=== PATIENT | female | born 1940 | race African-American/Black ===

== ENCOUNTER 2017-01-19 09:21 | Emergency (ER) | payer OTHER, MEDICAID ==
[~2017-01-19] VITALS: Ht 165.1 cm; Wt 60.0 kg
[~2017-01-19 09:21] MED LIST: ATEN1TAB47 PO; ESTR0.5T PO; FAMO40TA7 PO; HUMALOG INSULIN SUBCUT; LEVEMIR INSULIN SUBCUT; LEVEMIR SUBCUT; LOSA100T14 PO; ROSU20TA PO; SPIR50TA26 PO
[2017-01-19] MEDS ORDERED: LEVOFLOXACIN 750MG PREMIX 150 ML IV ONE (09:45)
[2017-01-19] MEDS ORDERED: SODIUM CHLORIDE 0.9% 1000ML BAG (SEPSIS BOLUS) IV ONE (09:45)
[2017-01-19] MEDS ORDERED: VANCOMYCIN 1 G PREMIX 200 ML IV ONE (09:45)
[2017-01-19 09:59] LABS: EOSINOPHILS % 2.4 % (0.0-5.0); HEMATOCRIT. 31.2 % (36.0-48.0); HEMOGLOBIN. 10.4 g/dL (12.0-16.0); LYMPHOCYTES % 34.1 % (20.0-50.0); MEAN CORPUSCULAR HEMOGLOBIN 30.6 pg (28.0-32.0); MEAN CORPUSCULAR HGB CONC 33.3 g/dL (31.0-37.0); MEAN CORPUSCULAR VOLUME 91.9 fL (81.0-99.0); MEAN PLATELET VOLUME 8.3 fl (7.4-10.4); MONOCYTES % 10.6 % (2.0-8.0); NEUTROPHILS % 51.9 % (40.0-76.0); PLATELET 165 x1000/uL (130-400); RED BLOOD CELL COUNT 3.39 mill/uL (4.2-5.4); RED CELL DISTRIBUTION WIDTH 14.4 % (11.6-14.6); WHITE BLOOD COUNT 3.5 x1000/uL (4.5-11.0)
[2017-01-19 10:05] LABS: CHLORIDE 104 mEq/L (98-107)
[2017-01-19 10:07] LABS: INDEX HEMOLYSI 1 (1-3); INDEX ICTERIC 1 (1-4); INDEX LIPEMIC 1 (1-3)
[2017-01-19 10:08] LABS: PARTIAL THROMBOPLASTIN TIME 27.1 sec (24.0-34.0); PROTHROMBIN TIME 10.7 sec
[2017-01-19 10:16] LABS: ALANINE AMINOTRANSFERASE 23 IU/L (13-61); ALBUMIN 3.6 g/dL (3.4-5.0); ANION GAP 10; CARBON DIOXIDE 32 mEq/L (21-32); NT PRO B-TYPE NATRIURETIC PEP 181 pg/mL (5-125); TROPONIN I < 0.02 ng/mL (0.00-0.04); UREA NITROGEN BLOOD 22 mg/dL (7-21); eGFR 53 mL/min (>60)
[2017-01-19 11:20] LABS: CLARITY URINE CLEAR (CLEAR); COLOR URINE YELLOW (YELLOW); GLUCOSE URINE TRACE (NEGATIVE); KETONES URINE NEGATIVE (NEGATIVE); LEUKOCYTE ESTERASE URINE NEGATIVE (NEGATIVE); NITRITE URINE NEGATIVE (NEGATIVE); OCCULT BLOOD URINE NEGATIVE (NEGATIVE); PROTEIN URINE NEGATIVE (NEGATIVE); SPECIFIC GRAVITY URINE 1.013 (1.005-1.030); UROBILINOGEN URINE 0.2 E.U./dL (0.2-1.0)
[2017-01-19 11:52] LABS: SQUAMOUS EPITHELIAL CELL URINE RARE /lpf (RARE/1+)
[2017-01-19 11:54] LABS: BACTERIA URINE NONE SEEN; RBC URINE NONE SEEN /hpf (0-2); WBC URINE NONE SEEN /hpf (0-2)
[2017-01-19 14:13] VITALS: BP 152/76
== END 2017-01-19 14:50 | disposition short-term general hospital (02) ==
LOC: ER 09:22
DX: R41.82 Altered mental status, unspecified (principal); Z88.0 Allergy status to penicillin; Z88.6 Allergy status to analgesic agent; Z79.899 Other long term (current) drug therapy; Z88.8 Allergy status to other drugs, medicaments and biological substances; I10 Essential (primary) hypertension; E78.00 Pure hypercholesterolemia, unspecified; E11.649 Type 2 diabetes mellitus with hypoglycemia without coma
CPT/HCPCS: 36415; 51702; 70450; 71010; 80053; 81001; 82962; 83605; 83880; 84484; 85025; 85610; 85730; 86850; 86900; 86901; 87040; 87086; 93005; 96365; 96366; 96367; 99285; J1956; J3370; J7030

== ENCOUNTER 2017-07-12 18:02 | Emergency (ER) | payer OTHER, MEDICAID ==
[~2017-07-12] VITALS: Ht 172.7 cm; Wt 59.0 kg
[2017-07-12] MEDS ORDERED: SODIUM CHLORIDE 0.9% 500 ML IV ONE ×2 (19:39→22:30)
[2017-07-12 20:18] LABS: INR 1.1
[2017-07-12 20:19] LABS: CHLORIDE 103 mEq/L (98-107)
[2017-07-12 20:22] LABS: BASOPHILS % 0.7 % (0.0-2.0); EOSINOPHILS % 6.1 % (0.0-5.0); HEMATOCRIT. 31.7 % (36.0-48.0); HEMOGLOBIN. 10.7 g/dL (12.0-16.0); LYMPHOCYTES % 29.9 % (20.0-50.0); MEAN CORPUSCULAR HEMOGLOBIN 30.4 pg (28.0-32.0); MEAN CORPUSCULAR VOLUME 90.4 fL (81.0-99.0); MEAN PLATELET VOLUME 9.1 fl (7.4-10.4); MONOCYTES % 8.7 % (2.0-8.0); NEUTROPHILS % 54.6 % (40.0-76.0); PLATELET 175 x1000/uL (130-400); RED BLOOD CELL COUNT 3.51 mill/uL (4.2-5.4); RED CELL DISTRIBUTION WIDTH 13.3 % (11.6-14.6)
[2017-07-12 20:31] LABS: CARBON DIOXIDE 29 mEq/L (21-32); TROPONIN I < 0.02 ng/mL (0.00-0.04)
[2017-07-12 22:51] LABS: CLARITY URINE CLEAR (CLEAR); COLOR URINE YELLOW (YELLOW); GLUCOSE URINE 3+ (NEGATIVE); KETONES URINE NEGATIVE (NEGATIVE); LEUKOCYTE ESTERASE URINE NEGATIVE (NEGATIVE); NITRITE URINE NEGATIVE (NEGATIVE); OCCULT BLOOD URINE NEGATIVE (NEGATIVE); PH URINE 7.5 (4.5-8.0); PROTEIN URINE NEGATIVE (NEGATIVE); SPECIFIC GRAVITY URINE 1.019 (1.005-1.030)
[2017-07-13 00:37] VITALS: BP 155/71
== END 2017-07-13 01:01 | disposition home or self-care (01) ==
LOC: ER 18:36
DX: E11.65 Type 2 diabetes mellitus with hyperglycemia (principal); E78.5 Hyperlipidemia, unspecified; I10 Essential (primary) hypertension; F03.90 Unspecified dementia, unspecified severity, without behavioral disturbance, psychotic disturbance, mood disturbance, and anxiety; Z88.0 Allergy status to penicillin; Z79.4 Long term (current) use of insulin; Z88.8 Allergy status to other drugs, medicaments and biological substances
CPT/HCPCS: 36415; 71010; 80053; 81001; 82962; 84484; 85025; 85610; 93005; 96360; 96361; 99285; J7040; J7030

== ENCOUNTER 2018-06-19 07:12 | Inpatient (IN) | payer OTHER, MEDICAID ==
[~2018-06-19] VITALS: Ht 162.6 cm; Wt 51.7 kg
[2018-06-19] VITALS (13 sets, daily range): BP systolic 104–136; BP diastolic 40–71
[~2018-06-19 07:12] MED LIST changes: -SPIR50TA26 PO; +SPIR50TA5 PO
[2018-06-19] MEDS ORDERED: SODIUM CHLORIDE 0.9% 1000ML BAG (SEPSIS BOLUS) IV ONE (07:30)
[2018-06-19 08:16] LABS: BASOPHILS % 0.4 % (0.0-2.0); HEMATOCRIT. 39.4 % (36.0-48.0); HEMOGLOBIN. 12.1 g/dL (12.0-16.0); LYMPHOCYTES % 7.1 % (20.0-50.0); MEAN CORPUSCULAR HEMOGLOBIN 30.7 pg (28.0-32.0); MEAN CORPUSCULAR VOLUME 99.9 fL (81.0-99.0); MEAN PLATELET VOLUME 9.7 fl (7.4-10.4); MONOCYTES % 5.9 % (2.0-8.0); NEUTROPHILS % 86.6 % (40.0-76.0); PLATELET 276 x1000/uL (130-400); RED BLOOD CELL COUNT 3.95 mill/uL (4.2-5.4); RED CELL DISTRIBUTION WIDTH 14.5 % (11.6-14.6)
[2018-06-19 08:17] LABS: CHLORIDE 92 mEq/L (98-107)
[2018-06-19] MEDS ORDERED: SODIUM CHLORIDE 0.9% 1,000 ML IV ONE (08:37)
[2018-06-19] MEDS ORDERED: FUROSEMIDE 100MG/10ML VIAL IV STA (08:37)
[2018-06-19] MEDS ORDERED: INSULIN REGULAR (HUMULIN R) 300UNITS/3ML IV ONE (08:45)
[2018-06-19] MEDS ORDERED: INSULIN REGULAR (DRIP) 100 UNITS in SODIUM CHLORIDE 0.9% 99 ML IV SCH (08:45)
[2018-06-19] MEDS ORDERED: ALBUTEROL (0.083%) 2.5MG/3ML NEB HHN ONE (08:45)
[2018-06-19] MEDS ORDERED: SODIUM BICARBONATE 8.4% 1 MEQ/ML 50ML SYR IV ONE (08:45)
[2018-06-19 08:55] LABS: BETA HYDROXYBUTYRATE 10.8 mMol/L (0.0-0.3)
[2018-06-19 09:00] LABS: BG BASE EXCESS -19.7 mmol/L (-2.0-2.0); BG CARBOXYHEMOGLOBIN 0.4 % (0.5-1.5); BG DEOXYHEMOGLOBIN 3.1 % (0.0-5.0); BG FRACTION INSPIRED OXYGEN 21; BG HCO3 ACT 7.1 mmol/L (22.0-26.0); BG METHEMOGLOBIN 0.3 % (0.0-1.5); BG OXYGEN SATURATION 96.9 % (92.0-98.5); BG OXYHEMOGLOBIN 96.2 % (94.0-97.0); BG PCO2 20.1 mmHg (35.0-45.0); BG PH 7.164 (7.350-7.450); BG PO2 104.4 mmHg (75.0-100.0); BG SAMPLE SITE RIGHT RADIAL; BG TOTAL HEMOGLOBIN 11.3 g/dL (12.0-18.0); BG VENT MODE ROOM AIR
[2018-06-19] MEDS ORDERED: ONDANSETRON HCL 4MG/2ML VIAL IV PRN (09:30)
[2018-06-19] MEDS ORDERED: IPRATROPIUM/ALBUTEROL 0.5-3(2.5)MG/3ML NEB HHN PRN (09:30)
[2018-06-19 10:08] LABS: PHOSPHORUS 7.9 mg/dL (2.5-4.9)
[2018-06-19] MEDS ORDERED: LEVOFLOXACIN 500MG PREMIX 100 ML IV SCH (11:30)
[2018-06-19 12:15] LABS: CLARITY URINE CLEAR (CLEAR); COLOR URINE YELLOW (YELLOW); KETONES URINE 1+ (NEGATIVE); LEUKOCYTE ESTERASE URINE NEGATIVE (NEGATIVE); NITRITE URINE NEGATIVE (NEGATIVE); OCCULT BLOOD URINE NEGATIVE (NEGATIVE); PROTEIN URINE NEGATIVE (NEGATIVE); SPECIFIC GRAVITY URINE 1.017 (1.005-1.030); UROBILINOGEN URINE 0.2 E.U./dL (0.2-1.0)
[2018-06-19] MEDS ORDERED: VANCOMYCIN 1250MG in DEXTROSE 5% WATER 250ML IV SCH (12:30)
[2018-06-19 12:36] LABS: *AMPHETAMINES SCREEN URINE NEGATIVE (NEGATIVE); *BENZODIAZEPINES SCREEN URINE NEGATIVE (NEGATIVE); *COCAINE SCREEN URINE NEGATIVE (NEGATIVE); METHADONE URINE SCREEN NEGATIVE (NEGATIVE)
[2018-06-19 12:37] LABS: CANNABINOID URINE SCREEN NEGATIVE (NEGATIVE); OPIATES URINE SCREEN NEGATIVE (NEGATIVE); PHENCYCLIDINE URINE SCREEN NEGATIVE (NEGATIVE)
[2018-06-19 12:39] LABS: *BARBITURATES SCREEN URINE NEGATIVE (NEGATIVE)
[2018-06-19] MEDS ORDERED: DEXTROSE 50% WATER 50ML SYRINGE IV PRN ×2 (13:00)
[2018-06-19] MEDS: SODIUM CHLORIDE 0.45% 1,000 ML IV SCH ×3 (13:08→20:28)
[2018-06-19] MEDS: INSULIN REGULAR (DRIP) 100 UNITS in SODIUM CHLORIDE 0.9% 99 ML IV PRN ×2 (13:36→20:55)
[2018-06-19] MEDS: BLOOD SUGAR DIAGNOSTIC STRIP TEST SCH ×11 (13:37→23:07)
[2018-06-19] MEDS ORDERED: ASPI-1159 MT (20:50)
[2018-06-19] MEDS ORDERED: FOLI0.8T27 PO (20:50)
[2018-06-19] MEDS ORDERED: DONE10TA43 MT (20:50)
[2018-06-19] MEDS ORDERED: [UNRECOGNIZED DRUG - CODE] PO (20:50)
[2018-06-19] MEDS ORDERED: FAMO40TA7 MT (20:50)
[2018-06-19] MEDS ORDERED: KCL 20MEQ/100ML PREMIX 100 ML IV NR (22:30)
[2018-06-19] MEDS: SODIUM CHL 0.45% + KCL 20MEQ/L 1,000 ML IV SCH (23:28)
[2018-06-20] VITALS (22 sets, daily range): BP systolic 118–163; BP diastolic 50–90
[2018-06-20] MEDS: BLOOD SUGAR DIAGNOSTIC STRIP TEST SCH ×23 (00:56→20:00)
[2018-06-20] MEDS: SODIUM CHL 0.45% + KCL 20MEQ/L 1,000 ML IV SCH ×4 (04:24→19:30)
[2018-06-20 05:37] LABS: HEMATOCRIT. 30.7 % (36.0-48.0); HEMOGLOBIN. 10.6 g/dL (12.0-16.0); MEAN CORPUSCULAR VOLUME 89.5 fL (81.0-99.0); MEAN PLATELET VOLUME 8.6 fl (7.4-10.4); PLATELET 195 x1000/uL (130-400); RED BLOOD CELL COUNT 3.43 mill/uL (4.2-5.4); RED CELL DISTRIBUTION WIDTH 13.7 % (11.6-14.6)
[2018-06-20] MEDS ORDERED: DEXTROSE 50% WATER 50ML SYRINGE IV PRN (10:30)
[2018-06-20] MEDS ORDERED: INSULIN GLARGINE UD 100 UNITS/ML SYR SUBCUT SCH (10:30)
[2018-06-20 10:37] LABS: PLATELET ESTIMATE NORMAL
[2018-06-20] MEDS ORDERED: LEVOFLOXACIN 250MG PREMIX 50 ML IV SCH (11:00)
[2018-06-20] MEDS: INSULIN LISPRO 100 UNITS/ML SUBCUT SCH ×3 (12:00→21:00)
[2018-06-20] MEDS ORDERED: VANCOMYCIN 500 MG PREMIX 100 ML IV SCH (13:00)
[2018-06-20 13:17] LABS: PHOSPHORUS 1.8 mg/dL (2.5-4.9)
== END 2018-06-20 22:00 | disposition short-term general hospital (02) | DRG 871 ==
LOC: ER 07:22 → EDBEDREQTM 08:45 → EDBEDREQSVC 08:45 → EDBEDREQ 08:49 → EDBEDREQTM 08:49 → ENRESERV 09:15 → MICUNO 10:23
PROVIDERS: ADMIT Internal Medicine; ATTEND Internal Medicine
DX: A41.9 Sepsis, unspecified organism (principal); E11.10 Type 2 diabetes mellitus with ketoacidosis without coma; G93.41 Metabolic encephalopathy; E87.1 Hypo-osmolality and hyponatremia; N17.9 Acute kidney failure, unspecified; E11.22 Type 2 diabetes mellitus with diabetic chronic kidney disease; E87.5 Hyperkalemia; E87.8 Other disorders of electrolyte and fluid balance, not elsewhere classified; F03.90 Unspecified dementia, unspecified severity, without behavioral disturbance, psychotic disturbance, mood disturbance, and anxiety; N18.9 Chronic kidney disease, unspecified; Z88.0 Allergy status to penicillin; Z88.8 Allergy status to other drugs, medicaments and biological substances; Z88.6 Allergy status to analgesic agent; Z79.899 Other long term (current) drug therapy
CPT/HCPCS: 36415; 36600; 70450; 71045; 80048; 80053; 80305; 81003; 82010; 82375; 82805; 82962; 83605; 83735; 84100; 84484; 85025; 85610; 87040; 87086; 93005; 96361; 96365; 96366; 96375; 97162; 99291; J1815; J1940; J1956; J3370; J3480; J3490; J7030; J7050; J7060; J7611

== ENCOUNTER 2018-08-09 17:04 | Inpatient (IN) | payer MEDICARE, MEDICAID ==
[~2018-08-09] VITALS: Ht 160 cm; Wt 62.6 kg
[~2018-08-09 17:04] MED LIST changes: +ASPI-1159 MT; +DONE10TA43 MT; +FAMO40TA7 MT; +FOLI0.8T27 PO; +[UNRECOGNIZED DRUG - CODE] PO
[2018-08-09 18:54] LABS: EOSINOPHILS % 4.4 % (0.0-5.0); HEMOGLOBIN. 10.8 g/dL (12.0-16.0); LYMPHOCYTES % 31.9 % (20.0-50.0); MEAN CORPUSCULAR HEMOGLOBIN 30.6 pg (28.0-32.0); MEAN CORPUSCULAR VOLUME 90.5 fL (81.0-99.0); MONOCYTES % 11.4 % (2.0-8.0); NEUTROPHILS % 51.3 % (40.0-76.0); PLATELET 199 x1000/uL (130-400); RED BLOOD CELL COUNT 3.53 mill/uL (4.2-5.4); RED CELL DISTRIBUTION WIDTH 13.6 % (11.6-14.6)
[2018-08-09 19:04] LABS: PROTHROMBIN TIME 9.9 sec (9.1-11.1)
[2018-08-09 19:05] LABS: CHLORIDE 101 mEq/L (98-107)
[2018-08-09] MEDS ORDERED: VANCOMYCIN 1 G PREMIX 200 ML IV SCH (20:15)
[2018-08-09] MEDS ORDERED: ONDANSETRON HCL 4MG/2ML INJ IV PRN (22:30)
[2018-08-09] MEDS ORDERED: CLONIDINE 0.1MG TABLET PO PRN (22:30)
[2018-08-09] MEDS ORDERED: IPRATROPIUM/ALBUTEROL 0.5-3(2.5)MG/3ML NEB INH PRN (22:30)
[2018-08-09] MEDS ORDERED: ACETAMINOPHEN 325MG TABLET PO PRN (22:30)
[2018-08-09 23:30] VITALS: BP 164/81
[2018-08-10] MEDS ORDERED: DEXTROSE 50% WATER 50ML SYRINGE IV PRN
[2018-08-10] MEDS: CLINDAMYCIN 300 MG in DEXTROSE 5% WATER 50 ML IV SCH ×4 (03:48→23:34)
[2018-08-10 04:00] VITALS: BP 123/63
[2018-08-10] MEDS: BLOOD SUGAR DIAGNOSTIC STRIP TEST SCH ×4 (06:22→20:46)
[2018-08-10 07:07] LABS: BASOPHILS % 0.9 % (0.0-2.0); EOSINOPHILS % 5.5 % (0.0-5.0); HEMATOCRIT. 30.1 % (36.0-48.0); HEMOGLOBIN. 10.2 g/dL (12.0-16.0); LYMPHOCYTES % 31.6 % (20.0-50.0); MEAN CORPUSCULAR HEMOGLOBIN 30.5 pg (28.0-32.0); MEAN CORPUSCULAR VOLUME 90.4 fL (81.0-99.0); MEAN PLATELET VOLUME 8.8 fl (7.4-10.4); MONOCYTES % 14.2 % (2.0-8.0); NEUTROPHILS % 47.8 % (40.0-76.0); PLATELET 187 x1000/uL (130-400); RED BLOOD CELL COUNT 3.33 mill/uL (4.2-5.4); RED CELL DISTRIBUTION WIDTH 13.5 % (11.6-14.6)
[2018-08-10 07:19] LABS: CHLORIDE 104 mEq/L (98-107)
[2018-08-10 07:37] LABS: HDL CHOLESTEROL 76 mg/dL (40-59); LDL CHOLESTEROL 70 mg/dL (5-100)
[2018-08-10] MEDS: INSULIN LISPRO 100 UNITS/ML SUBCUT SCH ×4 (08:16→21:30)
[2018-08-10 09:28] LABS: TOTAL IRON BINDING CAPACITY 292 ug/dL (250-450)
[2018-08-10] MEDS: SPIRONOLACTONE 25MG TABLET PO SCH (09:56)
[2018-08-10] MEDS: ATENOLOL 50 MG TABLET PO SCH (09:56)
[2018-08-10] MEDS: MEMANTINE HCL 5MG TABLET PO SCH (09:56)
[2018-08-10] MEDS: DONEPEZIL HCL 10MG TABLET PO SCH (09:56)
[2018-08-10] MEDS: DOCUSATE SODIUM 250MG CAPSULE PO SCH (09:56)
[2018-08-10] MEDS: LOSARTAN POTASSIUM 100 MG TABLET PO SCH (09:56)
[2018-08-10] MEDS: FOLIC ACID/VITAMIN B COMP W-C TABLET PO SCH (09:56)
[2018-08-10] MEDS: ENOXAPARIN 40MG/0.4ML SYR SUBCUT SCH (10:00)
[2018-08-10] MEDS: FUROSEMIDE 20MG/2ML VIAL IVP SCH (10:00)
[2018-08-10] MEDS: INSULIN GLARGINE UD 100 UNITS/ML SYR SUBCUT SCH (12:15)
[2018-08-10 12:59] LABS: VITAMIN B12 SERUM 459 pg/mL (211-911)
[2018-08-10 20:00] VITALS: BP 150/57
[2018-08-11] VITALS (7 sets, daily range): BP systolic 110–163; BP diastolic 52–77
[2018-08-11] MEDS: CLINDAMYCIN 300 MG in DEXTROSE 5% WATER 50 ML IV SCH ×3 (05:41→18:37)
[2018-08-11] MEDS: BLOOD SUGAR DIAGNOSTIC STRIP TEST SCH ×4 (06:22→20:28)
[2018-08-11] MEDS: FOLIC ACID/VITAMIN B COMP W-C TABLET PO SCH (08:09)
[2018-08-11] MEDS: ATENOLOL 50 MG TABLET PO SCH (08:09)
[2018-08-11] MEDS: DOCUSATE SODIUM 250MG CAPSULE PO SCH (08:09)
[2018-08-11] MEDS: LOSARTAN POTASSIUM 100 MG TABLET PO SCH (08:09)
[2018-08-11] MEDS: MEMANTINE HCL 5MG TABLET PO SCH (08:09)
[2018-08-11] MEDS: SPIRONOLACTONE 25MG TABLET PO SCH (08:10)
[2018-08-11] MEDS: DONEPEZIL HCL 10MG TABLET PO SCH (08:10)
[2018-08-11] MEDS: ENOXAPARIN 40MG/0.4ML SYR SUBCUT SCH (08:12)
[2018-08-11] MEDS: INSULIN LISPRO 100 UNITS/ML SUBCUT SCH ×4 (08:15→21:00)
[2018-08-11] MEDS: FUROSEMIDE 20MG/2ML VIAL IVP SCH (08:16)
[2018-08-11 10:50] LABS: BASOPHILS % 0.8 % (0.0-2.0); EOSINOPHILS % 3.2 % (0.0-5.0); HEMATOCRIT. 34.2 % (36.0-48.0); HEMOGLOBIN. 11.6 g/dL (12.0-16.0); LYMPHOCYTES % 27.4 % (20.0-50.0); MEAN CORPUSCULAR VOLUME 91.1 fL (81.0-99.0); MEAN PLATELET VOLUME 8.7 fl (7.4-10.4); MONOCYTES % 8.1 % (2.0-8.0); NEUTROPHILS % 60.5 % (40.0-76.0); PLATELET 207 x1000/uL (130-400); RED BLOOD CELL COUNT 3.75 mill/uL (4.2-5.4); RED CELL DISTRIBUTION WIDTH 13.8 % (11.6-14.6)
[2018-08-11] MEDS: INSULIN GLARGINE UD 100 UNITS/ML SYR SUBCUT SCH (13:17)
[2018-08-11] MEDS ORDERED: INSULIN LISPRO 100 UNITS/ML SUBCUT NR (15:50)
[2018-08-11] MEDS ORDERED: INSULIN GLARGINE UD 100 UNITS/ML SYR SUBCUT NR (17:00)
[2018-08-12] VITALS: BP 139/53
[2018-08-12] MEDS: CLINDAMYCIN 300 MG in DEXTROSE 5% WATER 50 ML IV SCH ×3 (00:12→11:26)
[2018-08-12 04:00] VITALS: BP 136/55
[2018-08-12] MEDS: BLOOD SUGAR DIAGNOSTIC STRIP TEST SCH ×2 (06:37→12:01)
[2018-08-12] MEDS: INSULIN LISPRO 100 UNITS/ML SUBCUT SCH ×2 (07:01→13:57)
[2018-08-12 08:00] VITALS: BP 176/81
[2018-08-12] MEDS: FUROSEMIDE 20MG/2ML VIAL IVP SCH (08:37)
[2018-08-12] MEDS: LOSARTAN POTASSIUM 100 MG TABLET PO SCH (08:37)
[2018-08-12] MEDS: SPIRONOLACTONE 25MG TABLET PO SCH (08:37)
[2018-08-12] MEDS: DONEPEZIL HCL 10MG TABLET PO SCH (08:38)
[2018-08-12] MEDS: MEMANTINE HCL 5MG TABLET PO SCH (08:38)
[2018-08-12] MEDS: FOLIC ACID/VITAMIN B COMP W-C TABLET PO SCH (08:38)
[2018-08-12] MEDS: ATENOLOL 50 MG TABLET PO SCH (08:38)
[2018-08-12] MEDS: DOCUSATE SODIUM 250MG CAPSULE PO SCH (08:38)
[2018-08-12] MEDS: ENOXAPARIN 40MG/0.4ML SYR SUBCUT SCH (08:39)
[2018-08-12] MEDS: INSULIN GLARGINE UD 100 UNITS/ML SYR SUBCUT SCH (10:00)
[2018-08-12 12:00] VITALS: BP 164/68
[2018-08-12 16:00] VITALS: BP 168/77
[2018-08-12 16:04] VITALS: BP 164/68
== END 2018-08-12 16:54 | DRG 602 ==
LOC: ER 17:55 → 6EST 20:27 → ENRESERV 22:19
PROVIDERS: ADMIT Internal Medicine Geriatric Medicine; ATTEND Internal Medicine Geriatric Medicine
DX: L03.116 Cellulitis of left lower limb (principal); E11.10 Type 2 diabetes mellitus with ketoacidosis without coma; F02.81 Dementia in other diseases classified elsewhere, unspecified severity, with behavioral disturbance; I13.10 Hypertensive heart and chronic kidney disease without heart failure, with stage 1 through stage 4 chronic kidney disease, or unspecified chronic kidney disease; G30.9 Alzheimer's disease, unspecified; R07.89 Other chest pain; I87.2 Venous insufficiency (chronic) (peripheral); D63.8 Anemia in other chronic diseases classified elsewhere; E11.65 Type 2 diabetes mellitus with hyperglycemia; M15.9 Polyosteoarthritis, unspecified; N18.9 Chronic kidney disease, unspecified; E11.22 Type 2 diabetes mellitus with diabetic chronic kidney disease; E87.70 Fluid overload, unspecified; Z79.82 Long term (current) use of aspirin; Z90.710 Acquired absence of both cervix and uterus; Z88.8 Allergy status to other drugs, medicaments and biological substances; Z88.0 Allergy status to penicillin
CPT/HCPCS: 36415; 71045; 80048; 80061; 82607; 82962; 83036; 83540; 83550; 83880; 84443; 84484; 86592; 93005; 93306; 93970; 96365; 97116; 97162; 97530; 99285; J1650; J1815; J1940; J3370; J3490; J7040; J7050; J7060

== ENCOUNTER 2018-11-28 18:30 | Inpatient (IN) | payer MEDICARE, MEDICAID ==
[~2018-11-28] VITALS: Ht 162.6 cm; Wt 71.3 kg
[2018-11-28] MEDS ORDERED: SODIUM CHLORIDE 0.9% 1000ML BAG (SEPSIS BOLUS) IV ONE ×2 (18:45→20:00)
[2018-11-28 19:31] LABS: BASOPHILS % 0.4 % (0.0-2.0); HEMATOCRIT. 36.2 % (36.0-48.0); HEMOGLOBIN. 11.8 g/dL (12.0-16.0); MEAN CORPUSCULAR VOLUME 91.8 fL (81.0-99.0); MEAN PLATELET VOLUME 8.2 fl (7.4-10.4); MONOCYTES % 9.1 % (2.0-8.0); NEUTROPHILS % 79.5 % (40.0-76.0); PLATELET 294 x1000/uL (130-400); RED BLOOD CELL COUNT 3.94 mill/uL (4.2-5.4); RED CELL DISTRIBUTION WIDTH 14.4 % (11.6-14.6)
[2018-11-28 19:38] LABS: CHLORIDE 96 mEq/L (98-107)
[2018-11-28] MEDS ORDERED: MEROPENEM 1,000 MG in SODIUM CHLORIDE 0.9% 100 ML IV ONE (20:00)
[2018-11-28] MEDS ORDERED: VANCOMYCIN 1 G PREMIX 200 ML IV ONE (20:00)
[2018-11-28] MEDS ORDERED: INSULIN REGULAR (DRIP) 100 UNITS in SODIUM CHLORIDE 0.9% 99 ML IV SCH ×2 (20:30→20:45)
[2018-11-28 20:54] LABS: CLARITY URINE CLOUDY (CLEAR); COLOR URINE YELLOW (YELLOW); KETONES URINE TRACE (NEGATIVE); LEUKOCYTE ESTERASE URINE NEGATIVE (NEGATIVE); NITRITE URINE NEGATIVE (NEGATIVE); OCCULT BLOOD URINE NEGATIVE (NEGATIVE); PROTEIN URINE TRACE (NEGATIVE); SPECIFIC GRAVITY URINE 1.015 (1.005-1.030); UROBILINOGEN URINE 0.2 E.U./dL (0.2-1.0)
[2018-11-28] MEDS ORDERED: ONDANSETRON HCL 4MG/2ML INJ IV PRN (21:45)
[2018-11-28] MEDS ORDERED: ACETAMINOPHEN 650MG SUPP PR PRN (21:45)
[2018-11-28] MEDS ORDERED: DIPHENHYDRAMINE 50MG/ML VIAL IV PRN (21:45)
[2018-11-28] MEDS ORDERED: SODIUM CHLORIDE 0.9% 1,000 ML IV SCH (22:15)
[2018-11-28 22:28] LABS: BG BASE EXCESS -3.9 mmol/L (-2.0-2.0); BG CARBOXYHEMOGLOBIN 0.4 % (0.5-1.5); BG FRACTION INSPIRED OXYGEN 21; BG HCO3 ACT 19.9 mmol/L (22.0-26.0); BG METHEMOGLOBIN 0.1 % (0.0-1.5); BG OXYHEMOGLOBIN 96.5 % (94.0-97.0); BG PCO2 32.2 mmHg (35.0-45.0); BG PH 7.409 (7.350-7.450); BG PO2 90.1 mmHg (75.0-100.0); BG SAMPLE SITE LEFT RADIAL; BG TOTAL HEMOGLOBIN 11.8 g/dL (12.0-18.0); BG VENT MODE ROOM AIR
[2018-11-29] VITALS (11 sets, daily range): BP systolic 118–154; BP diastolic 62–81
[2018-11-29] MEDS: DEXT 5%/0.45% NACL 1000ML 1,000 ML IV SCH (02:45)
[2018-11-29 03:32] LABS: PHOSPHORUS 3.4 mg/dL (2.5-4.9)
[2018-11-29 05:53] LABS: BASOPHILS % 0.8 % (0.0-2.0); HEMATOCRIT. 34.3 % (36.0-48.0); HEMOGLOBIN. 11.5 g/dL (12.0-16.0); LYMPHOCYTES % 9.5 % (20.0-50.0); MEAN CORPUSCULAR HEMOGLOBIN 30.4 pg (28.0-32.0); MEAN CORPUSCULAR VOLUME 90.7 fL (81.0-99.0); MEAN PLATELET VOLUME 8.4 fl (7.4-10.4); MONOCYTES % 5.6 % (2.0-8.0); NEUTROPHILS % 84.1 % (40.0-76.0); PLATELET 270 x1000/uL (130-400); RED BLOOD CELL COUNT 3.78 mill/uL (4.2-5.4); RED CELL DISTRIBUTION WIDTH 14.1 % (11.6-14.6)
[2018-11-29] MEDS ORDERED: SODIUM BICARBONATE 8.4% 1 MEQ/ML 50ML SYR IV NR (06:00)
[2018-11-29 06:10] LABS: PHOSPHORUS 3.8 mg/dL (2.5-4.9)
[2018-11-29] MEDS ORDERED: ONDANSETRON HCL 4MG/2ML INJ IV PRN (11:45)
[2018-11-29] MEDS ORDERED: INSULIN GLARGINE UD 100 UNITS/ML SYR SUBCUT ONE (12:00)
[2018-11-29] MEDS ORDERED: INSULIN REGULAR (DRIP) 100 UNITS in SODIUM CHLORIDE 0.9% 99 ML IV SCH (14:00)
[2018-11-29] MEDS ORDERED: INSULIN REGULAR (DRIP) 100 UNITS in SODIUM CHLORIDE 0.9% 99 ML IV PRN (14:00)
[2018-11-29] MEDS: ENOXAPARIN 30MG/0.3ML SYR SUBCUT SCH (20:00)
[2018-11-29] MEDS: BLOOD SUGAR DIAGNOSTIC STRIP TEST SCH ×3 (22:00→23:45)
[2018-11-29] MEDS: DEXTROSE 50% WATER 50ML SYRINGE IV PRN (22:09)
[2018-11-29] MEDS: INSULIN REGULAR (DRIP) 100 UNITS in SODIUM CHLORIDE 0.9% 99 ML IV SCH (22:49)
[2018-11-30] VITALS (36 sets, daily range): BP systolic 67–185; BP diastolic 27–140
[2018-11-30] MEDS: BLOOD SUGAR DIAGNOSTIC STRIP TEST SCH ×14 (00:45→21:37)
[2018-11-30] MEDS: SODIUM CHLORIDE 0.45% 1,000 ML IV SCH ×2 (00:55→02:41)
[2018-11-30] MEDS: DEXTROSE 50% WATER 50ML SYRINGE IV PRN (01:05)
[2018-11-30] MEDS: INSULIN REGULAR (DRIP) 100 UNITS in SODIUM CHLORIDE 0.9% 99 ML IV SCH (04:41)
[2018-11-30 05:16] LABS: HEMATOCRIT. 33.3 % (36.0-48.0); HEMOGLOBIN. 11.1 g/dL (12.0-16.0); MEAN CORPUSCULAR HEMOGLOBIN 30.2 pg (28.0-32.0); MEAN CORPUSCULAR VOLUME 90.4 fL (81.0-99.0); MEAN PLATELET VOLUME 8.5 fl (7.4-10.4); PLATELET 263 x1000/uL (130-400); RED BLOOD CELL COUNT 3.69 mill/uL (4.2-5.4); RED CELL DISTRIBUTION WIDTH 14.7 % (11.6-14.6)
[2018-11-30 07:18] LABS: PLATELET ESTIMATE NORMAL
[2018-11-30] MEDS: DEXT 5%/0.45% NACL 1000ML 1,000 ML IV SCH (07:45)
[2018-11-30] MEDS: PANTOPRAZOLE SODIUM 40 MG/VIAL IV SCH (07:45)
[2018-11-30] MEDS ORDERED: MEMA5TAB15 MT (09:23)
[2018-11-30] MEDS ORDERED: FURO20TA4 MT (09:23)
[2018-11-30] MEDS ORDERED: DOCU250C69 MT (09:23)
[2018-11-30] MEDS ORDERED: AMA2 MT (09:23)
[2018-11-30] MEDS ORDERED: ATEN50TA MT (09:23)
[2018-11-30] MEDS ORDERED: INSULIN GLARGINE UD 100 UNITS/ML SYR SUBCUT SCH ×2 (10:00→22:00)
[2018-11-30] MEDS ORDERED: DEXTROSE 50% WATER 50ML SYRINGE IV PRN (11:30)
[2018-11-30] MEDS: LOSARTAN POTASSIUM 25 MG TABLET PO SCH ×2 (11:43→20:33)
[2018-11-30] MEDS: ATENOLOL 50 MG TABLET PO SCH (11:43)
[2018-11-30] MEDS ORDERED: INSULIN LISPRO 100 UNITS/ML SUBCUT SCH ×4 (13:20→18:20)
[2018-11-30] MEDS: ENALAPRIL 1.25MG/ML VIAL 1ML IV PRN (14:36)
[2018-11-30] MEDS: MINOXIDIL 2.5MG TABLET PO SCH (16:41)
[2018-11-30] MEDS ORDERED: NICARDIPINE 50 MG in SODIUM CHLORIDE 0.9% 230 ML IV PRN (18:30)
[2018-11-30] MEDS: INSULIN LISPRO 100 UNITS/ML SUBCUT SCH ×2 (18:48→21:42)
[2018-11-30] MEDS: LEVOFLOXACIN 250MG PREMIX 50 ML IV SCH (20:33)
[2018-11-30] MEDS: ENOXAPARIN 30MG/0.3ML SYR SUBCUT SCH (20:33)
[2018-12-01] VITALS (44 sets, daily range): BP systolic 89–160; BP diastolic 32–96
[2018-12-01 06:15] LABS: BASOPHILS % 0.3 % (0.0-2.0); EOSINOPHILS % 0.7 % (0.0-5.0); HEMATOCRIT. 34.8 % (36.0-48.0); HEMOGLOBIN. 11.6 g/dL (12.0-16.0); LYMPHOCYTES % 19.3 % (20.0-50.0); MEAN CORPUSCULAR HEMOGLOBIN 30.4 pg (28.0-32.0); MEAN CORPUSCULAR VOLUME 91.2 fL (81.0-99.0); NEUTROPHILS % 71.7 % (40.0-76.0); PLATELET 248 x1000/uL (130-400); RED BLOOD CELL COUNT 3.81 mill/uL (4.2-5.4); RED CELL DISTRIBUTION WIDTH 14.7 % (11.6-14.6)
[2018-12-01] MEDS: INSULIN LISPRO 100 UNITS/ML SUBCUT SCH ×8 (07:50→21:02)
[2018-12-01] MEDS ORDERED: INSULIN LISPRO 100 UNITS/ML SUBCUT SCH (07:50)
[2018-12-01] MEDS: BLOOD SUGAR DIAGNOSTIC STRIP TEST SCH ×4 (08:44→21:01)
[2018-12-01] MEDS: PANTOPRAZOLE SODIUM 40 MG/VIAL IV SCH (08:44)
[2018-12-01] MEDS: MINOXIDIL 2.5MG TABLET PO SCH (08:45)
[2018-12-01] MEDS: ATENOLOL 50 MG TABLET PO SCH (08:45)
[2018-12-01] MEDS: LOSARTAN POTASSIUM 25 MG TABLET PO SCH ×2 (08:45→20:36)
[2018-12-01] MEDS ORDERED: INSULIN GLARGINE UD 100 UNITS/ML SYR SUBCUT SCH ×2 (10:00→22:00)
[2018-12-01 15:55] LABS: ETHANOL BLOOD < 10 mg/dL
[2018-12-01 16:01] LABS: T4 FREE 0.89 ng/dL (0.76-1.46)
[2018-12-01 16:10] LABS: FOLIC ACID (FOLATE) SERUM >20 ng/mL ng/mL (>5.38)
[2018-12-01 16:23] LABS: VITAMIN B12 SERUM 464 pg/mL (211-911)
[2018-12-01] MEDS ORDERED: LORAZEPAM 2MG/ML CPJ IV NR (16:30)
[2018-12-01] MEDS: ENOXAPARIN 30MG/0.3ML SYR SUBCUT SCH (20:35)
[2018-12-01] MEDS: LEVOFLOXACIN 250MG PREMIX 50 ML IV SCH (20:35)
[2018-12-02] VITALS (31 sets, daily range): BP systolic 120–181; BP diastolic 49–136
[2018-12-02 05:35] LABS: BASOPHILS % 0.6 % (0.0-2.0); EOSINOPHILS % 1.4 % (0.0-5.0); HEMATOCRIT. 39.1 % (36.0-48.0); HEMOGLOBIN. 12.9 g/dL (12.0-16.0); LYMPHOCYTES % 24.6 % (20.0-50.0); MEAN CORPUSCULAR HEMOGLOBIN 30.4 pg (28.0-32.0); MEAN CORPUSCULAR VOLUME 92.2 fL (81.0-99.0); MEAN PLATELET VOLUME 8.3 fl (7.4-10.4); MONOCYTES % 10.7 % (2.0-8.0); NEUTROPHILS % 62.7 % (40.0-76.0); PLATELET 242 x1000/uL (130-400); RED BLOOD CELL COUNT 4.24 mill/uL (4.2-5.4); RED CELL DISTRIBUTION WIDTH 14.5 % (11.6-14.6)
[2018-12-02] MEDS: INSULIN LISPRO 100 UNITS/ML SUBCUT SCH ×6 (07:50→20:37)
[2018-12-02] MEDS: DEXTROSE 50% WATER 50ML SYRINGE IV PRN ×3 (08:22→09:25)
[2018-12-02] MEDS: PANTOPRAZOLE SODIUM 40 MG/VIAL IV SCH (08:41)
[2018-12-02] MEDS: LOSARTAN POTASSIUM 25 MG TABLET PO SCH ×2 (08:42→20:36)
[2018-12-02] MEDS: CLOPIDOGREL 75MG TABLET PO SCH (08:42)
[2018-12-02] MEDS: ATENOLOL 50 MG TABLET PO SCH (08:42)
[2018-12-02] MEDS: MINOXIDIL 2.5MG TABLET PO SCH (08:42)
[2018-12-02] MEDS: BLOOD SUGAR DIAGNOSTIC STRIP TEST SCH ×4 (08:43→20:37)
[2018-12-02] MEDS ORDERED: INSULIN GLARGINE UD 100 UNITS/ML SYR SUBCUT SCH (10:00)
[2018-12-02] MEDS: INSULIN GLARGINE UD 100 UNITS/ML SYR SUBCUT SCH ×2 (10:39→22:02)
[2018-12-02] MEDS: ENALAPRIL 1.25MG/ML VIAL 1ML IV PRN (12:45)
[2018-12-02] MEDS: ENOXAPARIN 30MG/0.3ML SYR SUBCUT SCH (20:37)
[2018-12-03] VITALS: BP 122/83
[2018-12-03] MEDS: IPRATROPIUM/ALBUTEROL 0.5-3(2.5)MG/3ML NEB INH SCH ×4 (03:14→20:53)
[2018-12-03 04:00] VITALS: BP 128/57
[2018-12-03] MEDS: INSULIN LISPRO 100 UNITS/ML SUBCUT SCH ×7 (06:41→20:03)
[2018-12-03] MEDS: BLOOD SUGAR DIAGNOSTIC STRIP TEST SCH ×4 (06:42→20:03)
[2018-12-03 06:54] LABS: BASOPHILS % 0.8 % (0.0-2.0); EOSINOPHILS % 1.8 % (0.0-5.0); HEMATOCRIT. 34.8 % (36.0-48.0); HEMOGLOBIN. 11.6 g/dL (12.0-16.0); LYMPHOCYTES % 29.6 % (20.0-50.0); MEAN CORPUSCULAR HEMOGLOBIN 30.1 pg (28.0-32.0); MEAN CORPUSCULAR VOLUME 90.3 fL (81.0-99.0); MEAN PLATELET VOLUME 8.3 fl (7.4-10.4); MONOCYTES % 11.3 % (2.0-8.0); NEUTROPHILS % 56.5 % (40.0-76.0); PLATELET 239 x1000/uL (130-400); RED BLOOD CELL COUNT 3.86 mill/uL (4.2-5.4); RED CELL DISTRIBUTION WIDTH 14.5 % (11.6-14.6)
[2018-12-03] MEDS: MINOXIDIL 2.5MG TABLET PO SCH (09:00)
[2018-12-03] MEDS: ATENOLOL 50 MG TABLET PO SCH (09:00)
[2018-12-03] MEDS: LOSARTAN POTASSIUM 25 MG TABLET PO SCH ×2 (09:00→21:13)
[2018-12-03] MEDS: CLOPIDOGREL 75MG TABLET PO SCH (09:37)
[2018-12-03] MEDS: PANTOPRAZOLE SODIUM 40 MG/VIAL IV SCH (09:37)
[2018-12-03] MEDS: INSULIN GLARGINE UD 100 UNITS/ML SYR SUBCUT SCH ×2 (09:40→21:15)
[2018-12-03 12:00] VITALS: BP 142/115
[2018-12-03 16:00] VITALS: BP 144/57
[2018-12-03] MEDS ORDERED: SODIUM CHLORIDE 0.9% 500 ML IV NR (17:09)
[2018-12-03 20:00] VITALS: BP 113/66
[2018-12-03] MEDS ORDERED: ENOXAPARIN 40MG/0.4ML SYR SUBCUT SCH (21:00)
[2018-12-04] VITALS: BP 115/45
[2018-12-04] MEDS: IPRATROPIUM/ALBUTEROL 0.5-3(2.5)MG/3ML NEB INH SCH ×3 (01:50→15:14)
[2018-12-04 04:00] VITALS: BP 110/48
[2018-12-04] MEDS: BLOOD SUGAR DIAGNOSTIC STRIP TEST SCH ×3 (06:14→16:45)
[2018-12-04] MEDS: INSULIN LISPRO 100 UNITS/ML SUBCUT SCH ×5 (06:14→18:02)
[2018-12-04 07:45] LABS: BASOPHILS % 0.6 % (0.0-2.0); EOSINOPHILS % 1.3 % (0.0-5.0); HEMOGLOBIN. 10.2 g/dL (12.0-16.0); LYMPHOCYTES % 32.3 % (20.0-50.0); MEAN CORPUSCULAR HEMOGLOBIN 30.6 pg (28.0-32.0); MEAN CORPUSCULAR VOLUME 90.2 fL (81.0-99.0); MEAN PLATELET VOLUME 8.3 fl (7.4-10.4); MONOCYTES % 9.6 % (2.0-8.0); NEUTROPHILS % 56.2 % (40.0-76.0); PLATELET 221 x1000/uL (130-400); RED BLOOD CELL COUNT 3.32 mill/uL (4.2-5.4)
[2018-12-04 08:00] VITALS: BP 156/60
[2018-12-04 08:01] LABS: PHOSPHORUS 2.7 mg/dL (2.5-4.9)
[2018-12-04] MEDS ORDERED: FAMOTIDINE 20MG TABLET PO SCH (09:00)
[2018-12-04] MEDS: LOSARTAN POTASSIUM 25 MG TABLET PO SCH (09:21)
[2018-12-04] MEDS: CLOPIDOGREL 75MG TABLET PO SCH (09:21)
[2018-12-04] MEDS: MINOXIDIL 2.5MG TABLET PO SCH (09:22)
[2018-12-04] MEDS: ATENOLOL 50 MG TABLET PO SCH (09:22)
[2018-12-04] MEDS: INSULIN GLARGINE UD 100 UNITS/ML SYR SUBCUT SCH (11:18)
[2018-12-04] MEDS ORDERED: MAGNESIUM 2 G PREMIX 50 ML IV SCH (15:00)
[2018-12-04 17:11] VITALS: BP 112/41
[2018-12-04] MEDS ORDERED: ENOXAPARIN 30MG/0.3ML SYR SUBCUT SCH (21:00)
== END 2018-12-04 18:30 | DRG 64 ==
LOC: ER 18:30 → EDBEDREQSVC 20:35 → EDBEDREQTM 20:35 → EDBEDREQ 20:35 → EDBEDREQTM 21:51 → EDBEDREQSVC 11-29 09:47 → ENRESERV 11-29 13:57 → CANRESERV 11-29 13:57 → EDBEDREQSVC 11-29 14:04 → CVICU 11-29 15:00 → CANBEDREQ 11-29 17:27 → ENRESERV 11-29 17:52 → 5WST 12-02 18:04
PROVIDERS: ADMIT Internal Medicine Nephrology; ATTEND Internal Medicine Nephrology
PROC: 4A00X4Z Measurement of Central Nervous Electrical Activity, External Approach (ICD-10-PCS; principal; 2018-12-01)
DX: I63.9 Cerebral infarction, unspecified (principal); E11.10 Type 2 diabetes mellitus with ketoacidosis without coma; G92 Toxic encephalopathy; N39.0 Urinary tract infection, site not specified; N17.9 Acute kidney failure, unspecified; E78.5 Hyperlipidemia, unspecified; N18.9 Chronic kidney disease, unspecified; E11.22 Type 2 diabetes mellitus with diabetic chronic kidney disease; E86.9 Volume depletion, unspecified; F03.90 Unspecified dementia, unspecified severity, without behavioral disturbance, psychotic disturbance, mood disturbance, and anxiety; I12.9 Hypertensive chronic kidney disease with stage 1 through stage 4 chronic kidney disease, or unspecified chronic kidney disease; E78.00 Pure hypercholesterolemia, unspecified; L64.9 Androgenic alopecia, unspecified; E11.649 Type 2 diabetes mellitus with hypoglycemia without coma; Z90.710 Acquired absence of both cervix and uterus; Z88.0 Allergy status to penicillin; Z88.8 Allergy status to other drugs, medicaments and biological substances; Z79.890 Hormone replacement therapy; Z79.82 Long term (current) use of aspirin; Z79.4 Long term (current) use of insulin; Z79.899 Other long term (current) drug therapy; Z86.73 Personal history of transient ischemic attack (TIA), and cerebral infarction without residual deficits
CPT/HCPCS: 36415; 36600; 70551; 71045; 80048; 80061; 82010; 82140; 82375; 82607; 82746; 82805; 82947; 82962; 83036; 83605; 83735; 84100; 84145; 84439; 84443; 84481; 84484; 92610; 93005; 93306; 93880; 93970; 94640; 96365; 96366; 96368; 96372; 97116; 97162; 97166; 97530; 99291; A6261; C9113; J1200; J1650; J1815; J1956; J2060; J2185; J3370; J3475; J3490; J7030; J7040; J7050; J7620

== ENCOUNTER 2021-01-02 11:38 | Inpatient (IN) | payer MEDICARE, MEDICAID ==
[~2021-01-02] VITALS: Ht 160 cm; Wt 59.0 kg
[~2021-01-02 11:38] MED LIST changes: +AMIN30LI2 PO; +ASCO-339 PO; -ASPI-1159 MT; -ATEN1TAB47 PO; +CALC-1011 PO; +CLOP-31 PO; +COLL30OI TP; +DOCU250C69 MT; -DONE10TA43 MT; +ERGO80009 PO; -ESTR0.5T PO; +FAMO-135 PO; -FAMO40TA7 MT; -FAMO40TA7 PO; -FOLI0.8T27 PO; +GLUC1KIT3 SQ; -HUMALOG INSULIN SUBCUT; +INSLIS SUBCUT; +INSU100C6 SQ; +INSU100I24 SQ; +IPRA5POW MC; -LEVEMIR INSULIN SUBCUT; -LEVEMIR SUBCUT; -LOSA100T14 PO; +LOSA50TA41 PO; +METO-539 PO; +MULT10VI5 IV; +MYL30 PO; +NIFE90TA2 PO; -ROSU20TA PO; +SPIR25TA PO; -SPIR50TA5 PO; +TOPUD PO; -[UNRECOGNIZED DRUG - CODE] PO
[2021-01-02 13:18] LABS: BASOPHILS % 1.3 % (0.0-2.0); EOSINOPHILS % 2.5 % (0.0-5.0); HEMOGLOBIN. 10.2 g/dL (12.0-16.0); LYMPHOCYTES % 21.3 % (20.0-50.0); MEAN CORPUSCULAR HEMOGLOBIN 29.5 pg (28.0-32.0); MEAN CORPUSCULAR VOLUME 92.4 fL (81.0-99.0); MEAN PLATELET VOLUME 8.6 fl (7.4-10.4); MONOCYTES % 7.6 % (2.0-8.0); NEUTROPHILS % 67.3 % (40.0-76.0); PLATELET 454 x1000/uL (130-400); RED BLOOD CELL COUNT 3.47 mill/uL (4.2-5.4); RED CELL DISTRIBUTION WIDTH 16.2 % (11.6-14.6)
[2021-01-02 13:22] LABS: CHLORIDE 107 mEq/L (98-107)
[2021-01-02] MEDS: SODIUM CHLORIDE 0.45% 1,000 ML IV SCH (14:15)
[2021-01-02] MEDS ORDERED: ACETAMINOPHEN 650MG/20.3ML UDC GT PRN (14:15)
[2021-01-02] MEDS ORDERED: ONDANSETRON HCL 4MG/2ML INJ IV PRN (14:15)
[2021-01-02] MEDS ORDERED: IPRATROPIUM/ALBUTEROL 0.5-3(2.5)MG/3ML NEB HHN PRN (14:15)
[2021-01-02] MEDS ORDERED: DEXTROSE 50% WATER 50ML SYRINGE IV PRN ×2 (14:15)
[2021-01-02] MEDS ORDERED: ERGOCALCIFEROL 50000UNITS CAPSULE PO SCH (15:00)
[2021-01-02] MEDS ORDERED: LIDOCAINE HCL 2% JELLY 5ML ONE (15:24)
[2021-01-02] MEDS ORDERED: IOHEXOL-300 50 ML BOTTLE IV ONE (15:24)
[2021-01-02] MEDS: ENOXAPARIN 40MG/0.4ML SYR SUBCUT SCH (16:26)
[2021-01-02] MEDS: BLOOD SUGAR DIAGNOSTIC STRIP TEST SCH ×2 (17:02→20:59)
[2021-01-02] MEDS: METOPROLOL TARTRATE 50MG TABLET GT SCH (18:00)
[2021-01-02] MEDS: INSULIN LISPRO 100 UNITS/ML SUBCUT SCH ×2 (18:56→21:00)
[2021-01-02] MEDS ORDERED: INSULIN GLARGINE UD 100 UNITS/ML SYR SUBCUT SCH (22:00)
[2021-01-02 23:53] VITALS: BP 146/67
[2021-01-03] VITALS: BP 144/67
[2021-01-03] MEDS: FAMOTIDINE 20MG TABLET PO SCH ×2 (00:32→20:31)
[2021-01-03] MEDS: SODIUM CHLORIDE 0.45% 1,000 ML IV SCH ×2 (02:54→17:14)
[2021-01-03 04:00] VITALS: BP 140/65
[2021-01-03] MEDS: METOPROLOL TARTRATE 50MG TABLET GT SCH ×2 (05:16→18:40)
[2021-01-03] MEDS: BLOOD SUGAR DIAGNOSTIC STRIP TEST SCH ×4 (06:50→20:35)
[2021-01-03] MEDS: INSULIN LISPRO 100 UNITS/ML SUBCUT SCH ×4 (06:50→20:35)
[2021-01-03] MEDS: INSULIN REGULAR (HUMULIN R) 300UNITS/3ML VIAL SUBCUT SCH (06:50)
[2021-01-03 07:10] LABS: BASOPHILS % 1.1 % (0.0-2.0); EOSINOPHILS % 4.5 % (0.0-5.0); HEMATOCRIT. 30.1 % (36.0-48.0); HEMOGLOBIN. 9.7 g/dL (12.0-16.0); LYMPHOCYTES % 34.9 % (20.0-50.0); MEAN CORPUSCULAR HEMOGLOBIN 29.6 pg (28.0-32.0); MEAN CORPUSCULAR VOLUME 92.1 fL (81.0-99.0); MEAN PLATELET VOLUME 8.1 fl (7.4-10.4); NEUTROPHILS % 50.5 % (40.0-76.0); PLATELET 380 x1000/uL (130-400); RED BLOOD CELL COUNT 3.27 mill/uL (4.2-5.4); RED CELL DISTRIBUTION WIDTH 15.6 % (11.6-14.6)
[2021-01-03 07:20] LABS: CHLORIDE 109 mEq/L (98-107)
[2021-01-03 08:04] VITALS: BP 159/85
[2021-01-03] MEDS: LOSARTAN POTASSIUM 50 MG TABLET PO SCH (09:22)
[2021-01-03] MEDS: ASCORBIC ACID 500 MG TABLET GT SCH (09:22)
[2021-01-03] MEDS: FERROUS SULFATE 300MG/5ML UDC GT SCH (09:22)
[2021-01-03] MEDS: ZINC SULFATE 220 MG ( 50 ) CAPSULE GT SCH (09:22)
[2021-01-03] MEDS: DONEPEZIL HCL 10MG TABLET GT SCH (09:22)
[2021-01-03] MEDS: CLOPIDOGREL 75MG TABLET GT SCH (09:22)
[2021-01-03] MEDS: MULTIVITAMINS,THER W-MINERALS TABLET GT SCH (09:33)
[2021-01-03] MEDS: DOCUSATE SODIUM SUGAR FREE 100MG/10ML UDC NG SCH (09:33)
[2021-01-03] MEDS: INSULIN GLARGINE UD 100 UNITS/ML SYR SUBCUT SCH ×2 (10:49→20:36)
[2021-01-03 12:00] VITALS: BP 152/77
[2021-01-03] MEDS: ENOXAPARIN 40MG/0.4ML SYR SUBCUT SCH (14:55)
[2021-01-03 16:00] VITALS: BP 133/80
[2021-01-04] VITALS: BP 118/78
[2021-01-04 00:19] VITALS: BP 155/76
[2021-01-04 04:00] VITALS: BP 139/72
[2021-01-04] MEDS: SODIUM CHLORIDE 0.45% 1,000 ML IV SCH (05:21)
[2021-01-04] MEDS: METOPROLOL TARTRATE 50MG TABLET GT SCH (06:03)
[2021-01-04] MEDS: BLOOD SUGAR DIAGNOSTIC STRIP TEST SCH (06:03)
[2021-01-04] MEDS: INSULIN REGULAR (HUMULIN R) 300UNITS/3ML VIAL SUBCUT SCH (06:04)
[2021-01-04] MEDS: INSULIN LISPRO 100 UNITS/ML SUBCUT SCH (06:04)
[2021-01-04 08:00] VITALS: BP 161/76
[2021-01-04] MEDS: DONEPEZIL HCL 10MG TABLET GT SCH (09:15)
[2021-01-04] MEDS: CLOPIDOGREL 75MG TABLET GT SCH (09:17)
[2021-01-04] MEDS: DOCUSATE SODIUM SUGAR FREE 100MG/10ML UDC NG SCH (09:17)
[2021-01-04] MEDS: ZINC SULFATE 220 MG ( 50 ) CAPSULE GT SCH (09:17)
[2021-01-04] MEDS: FERROUS SULFATE 300MG/5ML UDC GT SCH (09:17)
[2021-01-04] MEDS: ASCORBIC ACID 500 MG TABLET GT SCH (09:18)
[2021-01-04] MEDS: LOSARTAN POTASSIUM 50 MG TABLET PO SCH (09:18)
[2021-01-04] MEDS: MULTIVITAMINS,THER W-MINERALS TABLET GT SCH (09:18)
[2021-01-04] MEDS: INSULIN GLARGINE UD 100 UNITS/ML SYR SUBCUT SCH (09:19)
== END 2021-01-04 10:45 | DRG 393 ==
LOC: ER 11:50 → 8WST 17:05 → ENRESERV 21:46
PROVIDERS: ADMIT Internal Medicine Geriatric Medicine; ATTEND Internal Medicine Geriatric Medicine
PROC: 0DP6XUZ Removal of Feeding Device from Stomach, External Approach (ICD-10-PCS; principal; 2021-01-02)
PROC: 0DH63UZ Insertion of Feeding Device into Stomach, Percutaneous Approach (ICD-10-PCS; 2021-01-02)
DX: K94.23 Gastrostomy malfunction (principal); L89.153 Pressure ulcer of sacral region, stage 3; E46 Unspecified protein-calorie malnutrition; Z88.0 Allergy status to penicillin; Z88.8 Allergy status to other drugs, medicaments and biological substances; Z68.23 Body mass index [BMI] 23.0-23.9, adult; E11.65 Type 2 diabetes mellitus with hyperglycemia; E78.5 Hyperlipidemia, unspecified; E87.5 Hyperkalemia; F02.80 Dementia in other diseases classified elsewhere, unspecified severity, without behavioral disturbance, psychotic disturbance, mood disturbance, and anxiety; G30.9 Alzheimer's disease, unspecified; I11.9 Hypertensive heart disease without heart failure; J44.9 Chronic obstructive pulmonary disease, unspecified; K29.70 Gastritis, unspecified, without bleeding; N30.20 Other chronic cystitis without hematuria; R13.10 Dysphagia, unspecified; R62.7 Adult failure to thrive; Z79.02 Long term (current) use of antithrombotics/antiplatelets; D63.8 Anemia in other chronic diseases classified elsewhere; Z79.4 Long term (current) use of insulin; Z79.899 Other long term (current) drug therapy; Z86.73 Personal history of transient ischemic attack (TIA), and cerebral infarction without residual deficits; Z87.442 Personal history of urinary calculi; Y83.8 Other surgical procedures as the cause of abnormal reaction of the patient, or of later complication, without mention of misadventure at the time of the procedure; Z20.822 Contact with and (suspected) exposure to COVID-19; D50.9 Iron deficiency anemia, unspecified; R54 Age-related physical debility; K80.20 Calculus of gallbladder without cholecystitis without obstruction; R74.01 Elevation of levels of liver transaminase levels; E11.649 Type 2 diabetes mellitus with hypoglycemia without coma
CPT/HCPCS: 36415; 36598; 49450; 71045; 80048; 80053; 80076; 82962; 83036; 83880; 84484; 85025; 87426; 93005; 99285; C1725; C1769; C1893; J1650; J1815; Q9967

== ENCOUNTER 2021-11-20 11:17 | Emergency (ER) | payer MEDICARE, MEDICAID ==
[~2021-11-20] VITALS: Ht 165.1 cm; Wt 60.0 kg
[2021-11-20] MEDS ORDERED: METHOCARBAMOL 500MG TABLET PO ONE (12:45)
[2021-11-20] MEDS ORDERED: HYDROCODONE/APAP 7.5/325MG 1 TAB TABLET PO ONE (12:45)
[2021-11-20] MEDS ORDERED: GABAPENTIN 300MG CAPSULE PO ONE (12:45)
[2021-11-20] MEDS ORDERED: LIDOCAINE 5% PATCH TOP SCH (12:45)
[2021-11-20] MEDS ORDERED: DIATR MEGLU/DIATRIZOATE SOLN 30ML ONE (13:52)
[2021-11-20 19:25] VITALS: BP 143/58
== END 2021-11-20 19:39 ==
LOC: ER 11:29
DX: K94.23 Gastrostomy malfunction (principal); E11.9 Type 2 diabetes mellitus without complications; J44.1 Chronic obstructive pulmonary disease with (acute) exacerbation; I10 Essential (primary) hypertension; Z88.0 Allergy status to penicillin; Z88.6 Allergy status to analgesic agent; Z88.8 Allergy status to other drugs, medicaments and biological substances; Z98.890 Other specified postprocedural states; Z86.73 Personal history of transient ischemic attack (TIA), and cerebral infarction without residual deficits; Z79.899 Other long term (current) drug therapy
CPT/HCPCS: 74018; 99285; Q9963